=== PATIENT | female | born 1960 | race Caucasian/White ===

== ENCOUNTER 2020-05-23 17:00 | Emergency (ER) | payer OTHER, SELFPAY ==
--- NOTE | ~2020-05-23 | XR_ITS ---
EXAMINATION: XR hand LT min 3V INDICATION: Left hand pain TECHNIQUE: Three views of the left hand are obtained. COMPARISON: None available FINDINGS: No fracture is identified. There are surgical changes at the base of the first metacarpal. Mild osteoarthritis is noted. The soft tissues are unremarkable. IMPRESSION: 1. No acute osseous abnormality. Reviewed, dictated and finalized at location A. TIG WELDER
--- NOTE | ~2020-05-23 | XR_ITS ---
EXAMINATION: XR ankle RT min 3V INDICATION: Right ankle pain, initial encounter TECHNIQUE: Four views of the right ankle are obtained. COMPARISON: None available FINDINGS: There is ankle soft tissue swelling, particularly near the lateral malleolus. Subtle hetero topic ossification projects lateral to the talus. Bone alignment is normal. IMPRESSION: 1. Ankle soft tissue swelling with possible avulsion injury at the lateral talus. Reviewed, dictated and finalized at location A. OPERATIONS ADMINISTRATOR IMPRESSION: 1. Ankle soft tissue swelling with possible avulsion injury at the lateral talu s.
--- NOTE | 2020-05-23 17:03 | ED.GENADULT ---
HPI - General Adult General Chief complaint: Extremity Injury, Lower Stated complaint: right ankle injury Time Seen by Provider: 05/23/20 17:03 Source: patient Mode of arrival: ambulatory Limitations: no limitations History of Present Illness HPI narrative: 59-year-old female patient presents to [facility] with complaints of right ankle pain. Patient states that she was working in the yard today helping her friend put a strong door on when she went to go and step backwards to step off of the step and rolled her right ankle. Patient states she did take some ibuprofen prior to arrival today and has been icing it. Patient states that the pain is mostly on the lateral side of the right ankle. Patient also states that she is having some pain to the base of the left thumb for that is the hand that she used to brace her fall and thinks that she smacked her hand when she fell. Related Data Home Medications Medication Instructions Recorded Confirmed acetaminophen [Tylenol] 325 mg PO Q4H PRN 05/23/20 05/23/20 atorvastatin 20 mg PO DAILY 05/23/20 05/23/20 famotidine 40 mg PO DAILY 05/23/20 05/23/20 ibuprofen 800 mg PO TID PRN 05/23/20 05/23/20 sertraline 150 mg PO DAILY 05/23/20 05/23/20 tramadol 50 - 100 mg PO TID PRN 05/23/20 05/23/20 trazodone 50 mg PO HS 05/23/20 05/23/20 triamterene-hydrochlorothiazid 1 tablet PO DAILY 05/23/20 05/23/20 Allergies Allergy/AdvReac Type Severity Reaction Status Date / Time red dye Allergy Unknown Verified 05/23/20 17:30 Review of Systems Review of Systems: Narrative: CONSTITUTIONAL: Denies fever, chills, or sweats. EYES: Denies visual changes, redness, or discharge. ENT: Denies rhinorrhea, congestion, sore throat, or otalgia. CARDIOVASCULAR: Denies chest pain, palpitations, or edema. RESPIRATORY: Denies cough or dyspnea. GASTROINTESTINAL: Denies abdominal pain, nausea, vomiting, or diarrhea. GENITOURINARY: Denies dysuria or hematuria. SKIN: Denies rash or itching. MUSCULOSKELETAL: Denies back pain, joint pain, or myalgia. Positive right ankle pain NEUROLOGIC: Denies headache, numbness, or weakness. PSYCHIATRIC: Denies anxiety or depression. [facility] Past Medical History Medical History (Updated 05/23/20 @ 17:35 by NESTOR Thurman) Chronic back pain Depression Fibromyalgia GERD (gastroesophageal reflux disease) Hypercholesterolemia Hypertension Insomnia Surgical History Surgical History (Updated 05/23/20 @ 17:33 by NESTOR Thurman) History of carpal tunnel release S/P trigger finger release Comments At the time of my signature I agree with nursing past medical history, surgical, social, and family history. There is no relevant family history pertinent to the presenting complaint. Exam Narrative: Exam Narrative: GENERAL: Well-appearing, well-nourished, and in no acute distress. HEAD: Normocephalic, atraumatic. EYES: PERRLA and EOMI. ENT: Nares clear, no rhinorrhea or epistaxis. Mucous membranes moist. NECK: Supple. No lymphadenopathy CHEST: Clear to auscultation. No respiratory distress. HEART: Regular rate and rhythm. No murmur heard. Normal peripheral pulses. ABDOMEN: Soft, nontender, nondistended, normal active bowel sounds. EXTREMITIES: Patient is unable to bear weight and ambulate without pain on the right ankle. The R ankle is without obvious asymmetry or deformity when compared to the L ankle. Patient has pain with flex/extend, invert/jet. Patient has significant soft tissue swelling over the lateral malleolus and lateral side of the ankle. Bony tenderness to palpation over the lateral malleolus. Pain over the anterior talofibular ligament, no pain over the posterior talofibular ligament, calcaneofibular ligament nontender and without swelling. No tenderness or deformity of the midfootor over the proximal fifth metatarsal. Good DP and posterior tibial pulses and sensation to light touch normal. Talar tilt test is negative for ligament laxity to valgus or vargus
[2020-05-23 17:10] VITALS: BP 136/74; PULSE 78; RESP 20; TEMP 36.1; O2SAT 97
--- NOTE | 2020-05-23 17:22 | PC.NURSE ---
PT TAKEN TO RADIOLOGY AND ROOM IN WHEELCHAIR
== END 2020-05-23 18:10 | disposition home or self-care (01) ==
PROVIDERS: Emergency Provider Nurse Practitioner Family; PCP Nurse Practitioner Family
DX: S82.891A Other fracture of right lower leg, initial encounter for closed fracture (principal); X50.9XXA Other and unspecified overexertion or strenuous movements or postures, initial encounter; F32.9 Major depressive disorder, single episode, unspecified; M79.7 Fibromyalgia; K21.9 Gastro-esophageal reflux disease without esophagitis; E78.00 Pure hypercholesterolemia, unspecified; I10 Essential (primary) hypertension
CPT/HCPCS: 29515; 73130; 73610; 99214; G0463